=== PATIENT | female | born 1960 | race Caucasian/White ===

== ENCOUNTER → 2017-04-15 | Outpatient (CLI) | payer SELFPAY ==
--- NOTE | 2017-04-15 16:44 | RADRPT ---
PROCEDURE: CR Left Knee CLINICAL INDICATION: Pain TECHNIQUE: An AP, a tunnel view, a lateral view and a sunrise view were submitted. COMPARISON: None FINDINGS: Osseous Structures: The osseous elements appear well mineralized and intact. Joint Spaces: The joint spaces are well maintained. A small joint effusion is evident.. Soft Tissues: The soft tissues appear unremarkable. IMPRESSION: 1. Small joint effusion 2. Otherwise, unremarkable left knee series. Physician Kadie Date Time Electronically viewed and signed by Telma Hill Physician on 04/15/2017 16:44 RH/
--- NOTE | 2017-04-15 20:05 | HKNOTE ---
DATE OF SERVICE: 04/15/2017 CHIEF COMPLAINT: Left knee pain. HISTORY OF PRESENT ILLNESS: This is a 56-year-old female complaining of left knee pain that has bee n progressively worsening. She denies any history of trauma. She denies any groin or back pain. S he states that the knee pain is sharp. There is no radiation. It is aggravated by walking and livier ding. There are no alleviating factors. GAIT: Nonantalgic reciprocal gait pattern. LEFT KNEE EXAMINATION: Neutral alignment. Tender over the medial joint line. Nontender over the l ateral joint line. There is 0 to 120 degrees range of motion. Negative Luiz. Negative anterior drawer. Negative posterior drawer. Stable to varus and valgus stress. Positive Alexi's. X-RAYS, LEFT KNEE: Three views of the left knee demonstrate medial joint space narrowing. There ar e no osteophytes or subchondral sclerosis. IMPRESSION: A 56-year-old female with mild to moderate degenerative joint disease of the left knee. PLAN: I discussed treatment options with Ms. Young. She can take ibuprofen as needed. If she c ontinues to have pain, she will call and make an appointment for followup and possible left knee cor ticosteroid injection. Dictated By: VICENTE PARK/DIMITRI Conf#: [id number] DID#: [id number]
== END | disposition home or self-care (01) ==
LOC: HKI 16:23
PROVIDERS: ATTEND Orthopaedic Surgery Adult Reconstructive Orthopaedic Surgery
DX: M17.12 Unilateral primary osteoarthritis, left knee (principal)
CPT/HCPCS: 73564; G0463